=== PATIENT | male | born 1975 | race Caucasian/White ===

== ENCOUNTER → 2016-08-02 | Outpatient (CLI) | payer MEDICARE, OTHER | END | disposition home or self-care (01) | LOC: LABWHC1 08:27 | PROVIDERS: ATTEND Psychiatry & Neurology Psychiatry | DX: F31.30 Bipolar disorder, current episode depressed, mild or moderate severity, unspecified (principal) | CPT/HCPCS: 36415; 80164 ==

== ENCOUNTER 2016-09-04 16:56 | Emergency (ER) | payer MEDICARE, OTHER ==
[2016-09-04 17:05] VITALS: BP 143/71; PULSE 97; RESP 18; TEMP 97.7
--- NOTE | 2016-09-04 17:11 | ED ---
General Adult HPI - General Chief complaint: Dental/Oral Stated complaint: Tooth Pain Time Seen by Provider: 09/04/16 17:06 Source: patient, RN notes reviewed Mode of arrival: ambulatory Limitations: no limitations - History of Present Illness Initial comments: 41 yo female presents to the emergency department with a chief complaint of right-sided dental pain. Patient states that she developed this pain over the last 3 days. Patient has tenderness to both the upper and lower jaw on the right. Patient admits to a history of dental problems and states he was told he didn't remove. Patient denies any radiation of pain into the neck. Patient denies any difficulty opening closing mouth. Patient was concerned due to his symptoms he thought that he should be seen.Patient denies any recent fever, chills, shortness of breath, chest pain, back pain, abdominal pain, nausea vomiting, numbness or tingling, dysuria or hematuria, constipation or diarrhea, headaches or visual changes, or any other current symptoms. - Related Data Home Medications Medication Instructions Recorded Confirmed ARIPiprazole [Abilify] 10 mg PO HS 02/25/14 11/25/15 Beclomethasone Dipropionate [Qvar 2 puff INHALATION RT-BID 02/25/14 11/25/15 40 mcg/puff] Divalproex [Depakote] 250 mg PO AC-BID 02/25/14 11/25/15 Sertraline [Zoloft] 100 mg PO DAILY 02/25/14 11/25/15 clonazePAM [KlonoPIN] 1 mg PO TID 02/25/14 11/25/15 Baclofen [Lioresal] 10 mg PO TID 02/24/15 11/25/15 Gabapentin [Neurontin] 100 mg PO TID 02/24/15 11/25/15 Divalproex Sodium [Depakote] 500 mg PO HS 02/25/15 11/25/15 Previous Rx's Medication Instructions Recorded Atorvastatin Calcium [Lipitor] 20 mg PO HS #30 tab 02/25/15 Omeprazole [PriLOSEC] 40 mg PO AC-BRKFST #0 02/25/15 Penicillin V Potassium [Pen Vee K] 500 mg PO QID #28 tab 11/25/15 traMADol HCL [Ultram] 50 mg PO Q4HR PRN #20 tab 11/25/15 Allergies Allergy/AdvReac Type Severity Reaction Status Date / Time acetaminophen Allergy Rash/Hives Verified 09/04/16 17:05 [From Tylenol-Codeine #3] codeine phosphate Allergy Rash/Hives Verified 09/04/16 17:05 [From Tylenol-Codeine #3] ibuprofen [From Motrin] AdvReac Itching Verified 09/04/16 17:05 Review of Systems ROS Statement: Those systems with pertinent positive or pertinent negative responses have been documented in the HPI. ROS Other: All systems not noted in ROS Statement are negative. Past Medical History Past Medical History: Asthma Additional Past Medical History / Comment(s): back pain History of Any Multi-Drug Resistant Organisms: None Reported Past Surgical History: Back Surgery Additional Past Surgical History / Comment(s): joseph arthroscopic knee surgery Past Anesthesia/Blood Transfusion Reactions: No Reported Reaction Past Psychological History: Bipolar, Depression Smoking Status: Current every day smoker Past Alcohol Use History: Rare Past Drug Use History: None Reported - Past Family History Father Family Medical History: Myocardial Infarction ([place]) Additional Family Medical History / Comment(s): at 42 Mother History Unknown: Yes Family Medical History: Myocardial Infarction ([place]) General Exam Limitations: no limitations General appearance: alert, in no apparent distress Head exam: Present: atraumatic, normocephalic, normal inspection ENT exam: Present: normal exam, mucous membranes moist, other (Dental caries throughout, no sign of abscess visible) Neck exam: Present: normal inspection. Absent: tenderness, meningismus, lymphadenopathy Respiratory exam: Present: normal lung sounds bilaterally. Absent: respiratory distress, wheezes, rales, rhonchi, stridor Cardiovascular Exam: Present: regular rate, normal rhythm, normal heart sounds. Absent: systolic murmur, diastolic murmur, rubs, gallop, clicks Neurological exam: Present: alert, oriented X3 Psychiatric exam: Present: normal affect, normal mood Skin exam: Present: warm, dry, intact, normal color. Absent: rash Course Vital Signs 09/04/16 17:01 Temperature 97.7 F Pulse Rate 97 Respiratory 18 Rate Blood Pressure 143/71 O2 Sat by Pulse 96 Oximetry Medical Decision Making - Medical Decision Making 40-year-old male presents for right-sided dental pain. Symptoms started patient on pain medication and antibiotics. We did discuss close follow-up with the dentist and return parameters. Patient states understanding of the plan. He will be discharged. Disposition Clinical Impression: Dental caries Disposition: HOME SELF-CARE Condition: Stable Instructions: Dental Caries (ED) Additional Instructions: Please use medication as discussed. Please follow up with family doctor if symptoms have not improved over the next two days. Please return to the emergency room if your symptoms increase or worsen or for any other concerns. [facility] [place] [address] [address] [employer] [place] [address] [phone] (existing clients only) For new clients: [phone] 1st consult: $50 (includes Xrays) Usually 30% less then private dentist for visits after. [facility] [employer] [facility] [employer] Have to pay $50 for Xrays anmd rest is covered. [phone] Referrals: Irina Mclean MD [Primary Care Provider] - 1-2 days Time of Disposition: 17:10
== END 2016-09-04 17:17 | disposition home or self-care (01) ==
LOC: EC 16:56
DX: K02.9 Dental caries, unspecified (principal); J45.909 Unspecified asthma, uncomplicated; F31.9 Bipolar disorder, unspecified; F17.200 Nicotine dependence, unspecified, uncomplicated; Z79.51 Long term (current) use of inhaled steroids; Z79.899 Other long term (current) drug therapy; Z88.5 Allergy status to narcotic agent; Z88.6 Allergy status to analgesic agent
CPT/HCPCS: 99282

== ENCOUNTER 2017-05-15 14:46 | Emergency (ER) | payer MEDICARE, OTHER ==
[2017-05-15 14:54] VITALS: BP 134/90; PULSE 113; RESP 20; TEMP 98.1
--- NOTE | 2017-05-15 15:02 | ED ---
General Adult HPI - General Chief complaint: Dental/Oral Stated complaint: DENTAL PAIN Time Seen by Provider: 05/15/17 14:52 Source: patient, RN notes reviewed Mode of arrival: ambulatory Limitations: no limitations - History of Present Illness Initial comments: Patient 42-year-old male presents to the emergency room today with a chief complaint of increased dental pain over the last 3 days. Patient states pain starts around tooth #9. He states he has had similar symptoms in the past. He states he does have a dentist that he can follow-up with. Patient denies any drainage or discharge. Denies any other complaints or symptoms. Patient denies any recent fever, chills, shortness of breath, chest pain, abdominal pain, headaches or visual changes, or any other complaints. - Related Data Home Medications Medication Instructions Recorded Confirmed ARIPiprazole [Abilify] 10 mg PO HS 02/25/14 11/25/15 Beclomethasone Dipropionate [Qvar 2 puff INHALATION RT-BID 02/25/14 11/25/15 40 mcg/puff] Divalproex [Depakote] 250 mg PO AC-BID 02/25/14 11/25/15 Sertraline [Zoloft] 100 mg PO DAILY 02/25/14 11/25/15 clonazePAM [KlonoPIN] 1 mg PO TID 02/25/14 11/25/15 Baclofen [Lioresal] 10 mg PO TID 02/24/15 11/25/15 Gabapentin [Neurontin] 100 mg PO TID 02/24/15 11/25/15 Divalproex Sodium [Depakote] 500 mg PO HS 02/25/15 11/25/15 Previous Rx's Medication Instructions Recorded Atorvastatin Calcium [Lipitor] 20 mg PO HS #30 tab 02/25/15 Omeprazole [PriLOSEC] 40 mg PO AC-BRKFST #0 02/25/15 Penicillin V Potassium [Pen Vee K] 500 mg PO QID #28 tab 11/25/15 traMADol HCL [Ultram] 50 mg PO Q4HR PRN #20 tab 11/25/15 Penicillin V Potassium [Pen Vee K] 500 mg PO TID #40 tab 09/04/16 traMADol HCl [Ultram] 50 mg PO Q4H PRN #20 tab 09/04/16 Penicillin V Potassium [Pen Vee K] 500 mg PO QID #40 tablet 05/15/17 Allergies Allergy/AdvReac Type Severity Reaction Status Date / Time acetaminophen Allergy Rash/Hives Verified 05/15/17 14:51 [From Tylenol-Codeine #3] codeine phosphate Allergy Rash/Hives Verified 05/15/17 14:51 [From Tylenol-Codeine #3] ibuprofen [From Motrin] AdvReac Itching Verified 05/15/17 14:51 Review of Systems ROS Statement: Those systems with pertinent positive or pertinent negative responses have been documented in the HPI. ROS Other: All systems not noted in ROS Statement are negative. Past Medical History Past Medical History: Asthma Additional Past Medical History / Comment(s): back pain History of Any Multi-Drug Resistant Organisms: None Reported Past Surgical History: Back Surgery Additional Past Surgical History / Comment(s): joseph arthroscopic knee surgery Past Anesthesia/Blood Transfusion Reactions: No Reported Reaction Past Psychological History: Bipolar, Depression Smoking Status: Current every day smoker Past Alcohol Use History: Rare Past Drug Use History: None Reported - Past Family History Father Family Medical History: Myocardial Infarction ([place]) Additional Family Medical History / Comment(s): at 42 Mother History Unknown: Yes Family Medical History: Myocardial Infarction ([place]) General Exam - General Exam Comments Initial Comments: General: The patient is awake and alert, in no distress, and does not appear acutely ill. Eye: Pupils are equal, round and reactive to light, extra-ocular movements are intact. No nystagmus. There is normal conjunctiva bilaterally. No signs of icterus. Ears, nose, mouth and throat: There are moist mucous membranes and no oral lesions. Patient does have poor dental hygiene. He has some mild tenderness throughout the gums. He does have increased tenderness over tooth #9. Tooth # 8 is missing. There is some redness in the gumline of this area but no abscess. Uvula is midline. Patient swallows without difficulty. Neck: The neck is supple, there is no tenderness or JVD. Musculoskeletal: Normal ROM, no tenderness. Strength 5/5. Sensation intact. Pulses equal bilaterally 2+. Neurological: A&O x 3. CN II-XII intact, There are no obvious motor or sensory deficits. Coordination appears grossly intact. Speech is normal. Skin: Skin is warm and dry and no rashes or lesions are noted. Psychiatric: Cooperative, appropriate mood & affect, normal judgment. Limitations: no limitations Course Vital Signs 05/15/17 14:51 Temperature 98.1 F Pulse Rate 113 H Respiratory 20 Rate Blood Pressure 134/90 O2 Sat by Pulse 97 Oximetry Medical Decision Making - Medical Decision Making Patient will be started on antibiotics of penicillin is advised follow-up with his dentist. Disposition Clinical Impression: Pain, dental Disposition: HOME SELF-CARE Condition: Good Instructions: Dental Abscess (ED) Additional Instructions: Please use medication as discussed. Please follow-up with dentist this coming week. Please return to emergency room if the symptoms increase or worsen or for any other concerns. Prescriptions: Penicillin V Potassium [Pen Vee K] 500 mg PO QID #40 tablet Referrals: Irina Mcelan MD [Primary Care Provider] - 1-2 days Time of Disposition: 15:01
== END 2017-05-15 15:10 | disposition home or self-care (01) ==
LOC: EC 14:46
DX: K08.89 Other specified disorders of teeth and supporting structures (principal); K08.409 Partial loss of teeth, unspecified cause, unspecified class; F17.200 Nicotine dependence, unspecified, uncomplicated; J45.909 Unspecified asthma, uncomplicated; F31.9 Bipolar disorder, unspecified; Z79.51 Long term (current) use of inhaled steroids; Z79.899 Other long term (current) drug therapy; Z88.5 Allergy status to narcotic agent; Z88.6 Allergy status to analgesic agent; Z88.8 Allergy status to other drugs, medicaments and biological substances; Z87.39 Personal history of other diseases of the musculoskeletal system and connective tissue
CPT/HCPCS: 99282

== ENCOUNTER 2017-05-29 14:52 | Emergency (ER) | payer MEDICARE, OTHER ==
[2017-05-29] MEDS ORDERED: PANTOPRAZOLE 40 MG/10 ML VIAL IVP STA (15:44)
[2017-05-29] MEDS ORDERED: ONDANSETRON 4 MG/2 ML VIAL IVP STA (15:44)
[2017-05-29] MEDS ORDERED: SODIUM CHLORIDE 0.9% 1,000 ML IV STA ×2 (15:44)
[2017-05-29] MEDS ORDERED: MAG HYDROX/AL HYDROX/SIMETH 30 ML, HYOSCYAMINE ELIXIR 10 ML, CIMETIDINE HCL 300 MG, LID... PO STA ×4 (15:45)
--- NOTE | 2017-05-29 15:48 | ED ---
Abdominal Pain HPI - General Chief Complaint: Abdominal Pain Stated Complaint: Abd Pain Time Seen by Provider: 05/29/17 15:38 Source: patient Mode of arrival: ambulatory Limitations: no limitations - History of Present Illness Initial Comments: This 42-year-old white male presents with a complaint of some midepigastric abdominal pain which is been present for approximately 10 days. He states that it is worse with food intake. It is much worse with spaghetti and other fatty foods and he has been avoiding this for the last 10 days. He does not drink alcohol. He relates that he's had some dental issues recently and started taking Motrin approximate 10 days ago. He does have a history of gastritis as well as an abdominal ventral hernia but denies any history of gallbladder or pancreatic problems in the past. He has tried some Pepto-Bismol without relief. He denies any fevers or chills. He has had some nausea but no vomiting or diarrhea. He denies any other complaints or modifying factors. - Related Data Home Medications Medication Instructions Recorded Confirmed ARIPiprazole [Abilify] 10 mg PO HS 02/25/14 11/25/15 Beclomethasone Dipropionate [Qvar 2 puff INHALATION RT-BID 02/25/14 11/25/15 40 mcg/puff] Divalproex [Depakote] 250 mg PO AC-BID 02/25/14 11/25/15 Sertraline [Zoloft] 100 mg PO DAILY 02/25/14 11/25/15 clonazePAM [KlonoPIN] 1 mg PO TID 02/25/14 11/25/15 Baclofen [Lioresal] 10 mg PO TID 02/24/15 11/25/15 Gabapentin [Neurontin] 100 mg PO TID 02/24/15 11/25/15 Divalproex Sodium [Depakote] 500 mg PO HS 02/25/15 11/25/15 Previous Rx's Medication Instructions Recorded Atorvastatin Calcium [Lipitor] 20 mg PO HS #30 tab 02/25/15 Omeprazole [PriLOSEC] 40 mg PO AC-BRKFST #0 02/25/15 Penicillin V Potassium [Pen Vee K] 500 mg PO QID #28 tab 11/25/15 traMADol HCL [Ultram] 50 mg PO Q4HR PRN #20 tab 11/25/15 Penicillin V Potassium [Pen Vee K] 500 mg PO TID #40 tab 09/04/16 traMADol HCl [Ultram] 50 mg PO Q4H PRN #20 tab 09/04/16 Penicillin V Potassium [Pen Vee K] 500 mg PO QID #40 tablet 05/15/17 Famotidine [Pepcid] 20 mg PO BID #60 tablet 05/29/17 Ondansetron [Zofran ODT] 8 mg PO Q8HR PRN #12 tab 05/29/17 traMADol HCl [Ultram] 50 - 100 mg PO Q6H PRN #15 tab 05/29/17 Allergies Allergy/AdvReac Type Severity Reaction Status Date / Time acetaminophen Allergy Rash/Hives Verified 05/29/17 15:15 [From Tylenol-Codeine #3] codeine phosphate Allergy Rash/Hives Verified 05/29/17 15:15 [From Tylenol-Codeine #3] Review of Systems ROS Statement: Those systems with pertinent positive or pertinent negative responses have been documented in the HPI. ROS Other: All systems not noted in ROS Statement are negative. Past Medical History Past Medical History: Asthma Additional Past Medical History / Comment(s): back pain, hernia History of Any Multi-Drug Resistant Organisms: None Reported Past Surgical History: Back Surgery Additional Past Surgical History / Comment(s): joseph arthroscopic knee surgery Past Anesthesia/Blood Transfusion Reactions: No Reported Reaction Past Psychological History: Bipolar, Depression Smoking Status: Current every day smoker Past Alcohol Use History: Rare Past Drug Use History: None Reported - Past Family History Father Family Medical History: Myocardial Infarction ([place]) Additional Family Medical History / Comment(s): at 42 Mother History Unknown: Yes Family Medical History: Myocardial Infarction ([place]) General Exam - General Exam Comments Initial Comments: GENERAL: The patient is well nourished and well hydrated. VITAL SIGNS: Heart rate, blood pressure, respiratory rate reviewed as recorded in nurse's notes. EYES: Pupils are round and reactive. Extraocular movements are intact. No conjunctival / lid redness or swelling. ENT: No external evidence of injury, swelling, or ecchymosis. Airway is patent. Throat is clear. NECK: Nontender. No swelling or evidence of injury. No subcutaneous emphysema. Trachea is midline. No thyroid mass. HEART: Regular rate and rhythm. Good peripheral pulses. LUNGS/CHEST: Breath sounds clear and equal bilaterally. No rales, rhonchi, or wheezes. No ecchymosis, subcutaneous emphysema, or tenderness. ABDOMEN: Tenderness is noted to the midepigastric region. No palpable masses or organomegaly. No peritoneal signs. No abdominal wall swelling or ecchymosis. EXTREMITIES: No extremity tenderness. Normal muscle tone and function. No thoracolumbar tenderness. NEUROLOGIC: Sensation is grossly intact. Cranial nerve exam reveals face is symmetrical, tongue is midline, speech is clear. SKIN: No abrasions or ecchymosis is noted. No induration or masses noted. PSYCHIATRIC: Alert and oriented. Appropriate behavior and judgment. Limitations: no limitations Course Vital Signs 05/29/17 15:14 Temperature 98.4 F Pulse Rate 114 H Respiratory 20 Rate Blood Pressure 131/84 O2 Sat by Pulse 99 Oximetry Medical Decision Making - Medical Decision Making The patient was seen and examined. All diagnostics are reviewed. He does receive some IV Protonix and Zofran. He also receives a GI cocktail. He has a gallbladder ultrasound. This did not show any acute abnormalities. The laboratory was all essentially within normal limits. He states that he feels remarkably improved on recheck. The patient likely does have a gastritis. The timeframe of him starting taking Motrin and his symptom onset is the same. He is instructed to avoid Motrin and Motrin like products in the future. He is agreeable. He would likely benefit from follow-up with a radiology asst for possible EGD. He is agreeable with this plan and leaves in no distress. - Lab Data Result diagrams: 05/29/17 15:47 05/29/17 15:47 Lab Results 05/29/17 05/29/17 05/29/17 Range/Units 15:47 15:47 15:47 WBC 10.8 H (3.8-10.6) k/uL RBC 4.59 (4.30-5.90) m/uL Hgb 14.5 (13.0-17.5) gm/dL Hct 43.6 (39.0-53.0) % MCV 94.9 (80.0-100.0) fL MCH 31.6 (25.0-35.0) pg MCHC 33.3 (31.0-37.0) g/dL RDW 13.7 (11.5-15.5) % Plt Count 308 (150-450) k/uL Neutrophils % 74 % Lymphocytes % 20 % Monocytes % 5 % Eosinophils % 0 % Basophils % 0 % Neutrophils # 8.0 H (1.3-7.7) k/uL Lymphocytes # 2.1 (1.0-4.8) k/uL Monocytes # 0.5 (0-1.0) k/uL Eosinophils # 0.0 (0-0.7) k/uL Basophils # 0.0 (0-0.2) k/uL Sodium 145 (137-145) mmol/L Potassium 4.2 (3.5-5.1) mmol/L Chloride 106 (98-107) mmol/L Carbon Dioxide 25 (22-30) mmol/L Anion Gap 14 mmol/L BUN 27 H (9-20) mg/dL Creatinine 0.77 (0.66-1.25) mg/dL Est GFR (CKD-EPI)AfAm >90 (>60 ml/min/1.73 sqM) Est GFR (CKD-EPI)NonAf >90 (>60 ml/min/1.73 sqM) Glucose 103 H (74-99) mg/dL Calcium 9.5 (8.4-10.2) mg/dL Total Bilirubin 0.2 (0.2-1.3) mg/dL AST 20 (17-59) U/L ALT 18 L (21-72) U/L Alkaline Phosphatase 49 (38-126) U/L Total Protein 6.8 (6.3-8.2) g/dL Albumin 4.2 (3.5-5.0) g/dL Amylase 98 (30-110) U/L Lipase 210 (23-300) U/L Urine Color Yellow Urine Appearance Clear (Clear) Urine pH 6.5 (5.0-8.0) Ur Specific Seltzer 1.024 (1.001-1.035) Urine Protein Negative (Negative) Urine Glucose (UA) Negative (Negative) Urine Ketones Trace H (Negative) Urine Blood Negative (Negative) Urine Nitrite Negative (Negative) Urine Bilirubin Negative (Negative) Urine Urobilinogen 2.0 (<2.0) mg/dL Ur Leukocyte Esterase Trace H (Negative) Urine RBC 1 (0-5) /hpf Ur Squamous Epith Cells <1 (0-4) /hpf Urine Mucus Rare H (None) /hpf Disposition Clinical Impression: Abdominal pain, Gastritis Disposition: HOME SELF-CARE Condition: Good Instructions: Abdominal Pain (ED), Gastritis (ED) Additional Instructions: Please avoid Motrin, aspirin, Aleve, and similar products. Prescriptions: Famotidine [Pepcid] 20 mg PO BID #60 tablet Ondansetron [Zofran ODT] 8 mg PO Q8HR PRN #12 tab PRN Reason: Nausea traMADol HCl [Ultram] 50 - 100 mg PO Q6H PRN #15 tab PRN Reason: Pain Is patient prescribed a controlled substance at discharge?: Yes If prescribed controlled substance>3 days was MAPS reviewed?: Yes When asked, does pt state using other controlled substances?: No Referrals: Irina Mclean MD [Primary Care Provider] - 1-2 days Vonda Holt MD [STAFF PHYSICIAN] - As Soon As Possible Time of Disposition: 16:48
[2017-05-29 16:12] LABS: Basophils % (A) 0 %; Eosinophils % (A) 0 %; HCT 43.6 % (39.0-53.0); HGB 14.5 gm/dL (13.0-17.5); Lymphocytes # (A) 2.1 k/uL (1.0-4.8); Lymphocytes % (A) 20 %; MCH 31.6 pg (25.0-35.0); MCHC 33.3 g/dL (31.0-37.0); MCV 94.9 fL (80.0-100.0); Mean Platelet Volume 7.1; Monocytes # (A) 0.5 k/uL (0-1.0); Monocytes % (A) 5 %; Neutrophils % (A) 74 %; Platelet Count 308 k/uL (150-450); RBC 4.59 m/uL (4.30-5.90); RDW 13.7 % (11.5-15.5); WBC 10.8 k/uL (3.8-10.6)
[2017-05-29 16:19] LABS: Appearance,Urine Clear (Clear); Bilirubin,Urine Negative (Negative); Blood,Urine Negative (Negative); Color,Urine Yellow; Glucose,Urine (UA) Negative (Negative); Ketones,Urine Trace (Negative); Leukocyte Esterase,Urine Trace (Negative); Mucus,Urine Rare /hpf; Nitrite,Urine Negative (Negative); PH, Urine 6.5 (5.0-8.0); Protein,Urine Negative (Negative); RBC,Urine 1 /hpf (0-5); Specific Gravity,Urine 1.024 (1.001-1.035); Squamous Epithelial Cell,Urine <1 /hpf (0-4)
[2017-05-29 16:23] LABS: ALT 18 U/L (21-72); AST 20 U/L (17-59); Albumin 4.2 g/dL (3.5-5.0); Alkaline Phosphatase 49 U/L (38-126); Amylase 98 U/L (30-110); Anion Gap 14 mmol/L; Blood Urea Nitrogen 27 mg/dL (9-20); Calcium 9.5 mg/dL (8.4-10.2); Carbon Dioxide 25 mmol/L (22-30); Chloride 106 mmol/L (98-107); Glucose 103 mg/dL (74-99); Lipase 210 U/L (23-300); Potassium 4.2 mmol/L (3.5-5.1); Sodium 145 mmol/L (137-145); Total Bilirubin 0.2 mg/dL (0.2-1.3); Total Protein 6.8 g/dL (6.3-8.2)
--- NOTE | 2017-05-29 16:30 | US ---
EXAMINATION TYPE: US gallbladder DATE OF EXAM: 05/29/2017 COMPARISON: None CLINICAL HISTORY: 42-year-old male Pain. Epigastric pain, Not NPO- ate at 12. Technique: Multiple sonographic images of the right upper quadrant are obtained. FINDINGS: Liver Length: 16.5 cm Gallbladder Wall: 2.3 mm CBD: 0.3 cm CHD: 0.3 cm Right Kidney: 9.6 x 4.6 x 4.1 cm Pancreas: Grossly unremarkable. Liver: Upper limits of normal in size without focal lesion. Gallbladder: wnl Evidence for sonographic Syed's sign: neg CBD: wnl CHD: wnl Right Kidney: No hydronephrosis. IMPRESSION: Unremarkable sonographic examination of the right upper quadrant.
[2017-05-29 17:00] VITALS: BP 124/71; PULSE 67; RESP 18; TEMP 97.4
== END 2017-05-29 17:00 | disposition home or self-care (01) ==
LOC: EC 14:52
DX: K29.70 Gastritis, unspecified, without bleeding (principal); J45.909 Unspecified asthma, uncomplicated; F32.9 Major depressive disorder, single episode, unspecified; F17.200 Nicotine dependence, unspecified, uncomplicated; Z79.51 Long term (current) use of inhaled steroids; Z79.899 Other long term (current) drug therapy; Z88.6 Allergy status to analgesic agent; Z88.5 Allergy status to narcotic agent
CPT/HCPCS: 36415; 80053; 82150; 83690; 85025; 81001; 76705; 99284; 96374; 96375; 96361; J2405; C9113

== ENCOUNTER 2018-05-02 04:07 | Emergency (ER) | payer MEDICARE, OTHER ==
[2018-05-02 04:13] VITALS: BP 156/97; PULSE 102; RESP 20; TEMP 99.8
[2018-05-02] MEDS ORDERED: ONDANSETRON 4 MG ODT STARTER PACK 2 TAB BTL PO STA (04:25)
[2018-05-02] MEDS ORDERED: KETOROLAC 30 MG/ML 1 ML VIAL IM STA (04:25)
[2018-05-02 05:29] LABS: Appearance,Urine Clear (Clear); Bilirubin,Urine Negative (Negative); Blood,Urine Small (Negative); Budding Yeast,Urine Rare /hpf; Color,Urine Yellow; Glucose,Urine (UA) Negative (Negative); Ketones,Urine 1+ (Negative); Leukocyte Esterase,Urine Negative (Negative); Mucus,Urine Rare /hpf; Nitrite,Urine Negative (Negative); Protein,Urine Trace (Negative); RBC,Urine 12 /hpf (0-5); Specific Gravity,Urine 1.021 (1.001-1.035); Squamous Epithelial Cell,Urine <1 /hpf (0-4); Urobilinogen,Urine <2.0 mg/dL (<2.0); WBC,Urine 3 /hpf (0-5)
--- NOTE | 2018-05-02 05:57 | ED ---
Abdominal Pain HPI - General Chief Complaint: Abdominal Pain Stated Complaint: abd pain Time Seen by Provider: 05/02/18 04:25 Source: patient Mode of arrival: ambulatory Limitations: no limitations - History of Present Illness Initial Comments: Patient is a 43-year-old male with a past medical history of recurrent kidney stones who presents the emergency department today for evaluation of left-sided flank pain radiating into his left groin. Pain began suddenly awoke him from sleep. Pain is a 10.5 out of 10 in intensity. Pain is similar to previous kidney stones. Pain is associated with nausea. He has not noticed any gross hematuria. The patient denies any fevers, chills or vomiting. - Related Data Home Medications Medication Instructions Recorded Confirmed ARIPiprazole [Abilify] 10 mg PO HS 02/25/14 11/25/15 Beclomethasone Dipropionate [Qvar 2 puff INHALATION RT-BID 02/25/14 11/25/15 40 mcg/puff] Divalproex [Depakote] 250 mg PO AC-BID 02/25/14 11/25/15 Sertraline [Zoloft] 100 mg PO DAILY 02/25/14 11/25/15 clonazePAM [KlonoPIN] 1 mg PO TID 02/25/14 11/25/15 Baclofen [Lioresal] 10 mg PO TID 02/24/15 11/25/15 Gabapentin [Neurontin] 100 mg PO TID 02/24/15 11/25/15 Divalproex Sodium [Depakote] 500 mg PO HS 02/25/15 11/25/15 Previous Rx's Medication Instructions Recorded Atorvastatin Calcium [Lipitor] 20 mg PO HS #30 tab 02/25/15 Omeprazole [PriLOSEC] 40 mg PO AC-BRKFST #0 02/25/15 Penicillin V Potassium [Pen Vee K] 500 mg PO QID #28 tab 11/25/15 traMADol HCL [Ultram] 50 mg PO Q4HR PRN #20 tab 11/25/15 Penicillin V Potassium [Pen Vee K] 500 mg PO TID #40 tab 09/04/16 traMADol HCl [Ultram] 50 mg PO Q4H PRN #20 tab 09/04/16 Penicillin V Potassium [Pen Vee K] 500 mg PO QID #40 tablet 05/15/17 Famotidine [Pepcid] 20 mg PO BID #60 tablet 05/29/17 Ondansetron [Zofran ODT] 8 mg PO Q8HR PRN #12 tab 05/29/17 traMADol HCl [Ultram] 50 - 100 mg PO Q6H PRN #15 tab 05/29/17 Allergies Allergy/AdvReac Type Severity Reaction Status Date / Time acetaminophen Allergy Rash/Hives Verified 05/02/18 04:13 [From Tylenol-Codeine #3] codeine phosphate Allergy Rash/Hives Verified 05/02/18 04:13 [From Tylenol-Codeine #3] ibuprofen [From Motrin] AdvReac Itching Verified 05/02/18 04:13 Review of Systems ROS Statement: Those systems with pertinent positive or pertinent negative responses have been documented in the HPI. ROS Other: All systems not noted in ROS Statement are negative. Past Medical History Past Medical History: Asthma Additional Past Medical History / Comment(s): back pain, hernia History of Any Multi-Drug Resistant Organisms: None Reported Past Surgical History: Back Surgery Additional Past Surgical History / Comment(s): joseph arthroscopic knee surgery Past Anesthesia/Blood Transfusion Reactions: No Reported Reaction Past Psychological History: Bipolar, Depression Smoking Status: Current every day smoker Past Alcohol Use History: Rare Past Drug Use History: None Reported, Marijuana - Past Family History Father Family Medical History: Myocardial Infarction (DC) Additional Family Medical History / Comment(s): at 42 Mother History Unknown: Yes Family Medical History: Myocardial Infarction (DC) General Exam - General Exam Comments Initial Comments: Physical Exam GENERAL: Patient is well-developed and well-nourished. Patient is nontoxic and well-hydrated appears uncomfortable HENT: Normocephalic, Atraumatic. EYES: PERRL, EOMI PULMONARY: Unlabored respirations. No audible rales rhonchi or wheezing was noted. CARDIOVASCULAR: There is a regular rate and rhythm without any murmurs gallops or rubs. ABDOMEN: Soft and nontender with normal bowel sounds. Flank pain to palpation of the left flank SKIN: Skin is clear with no lesions or rashes and otherwise unremarkable. Multiple tattoos : Normal external genitalia circumcised No hernia palpated on exam Testicles have normal lie, no swelling, no tenderness to palpation NEUROLOGIC: Patient is alert and oriented x3. Moving all extremities spontaneously MUSCULOSKELETAL: Normal extremities with adequate strength and full range of motion. No lower extremity swelling or edema. No calf tenderness. PSYCHIATRIC: Normal psychiatric evaluation. Limitations: no limitations Limitations: no limitations Course Vital Signs 05/02/18 04:10 Temperature 99.8 F H Pulse Rate 102 H Respiratory 20 Rate Blood Pressure 156/97 O2 Sat by Pulse 97 Oximetry Medical Decision Making - Medical Decision Making Patient was seen and evaluated history was obtained from the patient and review of medical records this is a 43-year-old male with history of kidney stones presenting with left-sided flank pain radiating to his groin similar to previous kidney stones Analysis was obtained to evaluate for any hematuria or signs of infection Patient was treated with Zofran and Toradol Analysis does reveal microscopic hematuria which is consistent with likely kidney stone Patient reports his pain is improving after Toradol, his nausea has resolved At this time it is comfortable with plan for discharge home patient can resume his pain management with his by mouth Ultram. I did offer the patient Tylenol 3 however he has a codeine ALLERGY is codeine causes him nausea vomiting and at this time patient's comfortable with the plan for discharge and outpatient follow-up. Return parameters were discussed and the patient was discharged home in stable condition. - Lab Data Lab Results 05/02/18 Range/Units 04:35 Urine Color Yellow Urine Appearance Clear (Clear) Urine pH 6.0 (5.0-8.0) Ur Specific Sandy Level 1.021 (1.001-1.035) Urine Protein Trace H (Negative) Urine Glucose (UA) Negative (Negative) Urine Ketones 1+ H (Negative) Urine Blood Small H (Negative) Urine Nitrite Negative (Negative) Urine Bilirubin Negative (Negative) Urine Urobilinogen <2.0 (<2.0) mg/dL Ur Leukocyte Esterase Negative (Negative) Urine RBC 12 H (0-5) /hpf Urine WBC 3 (0-5) /hpf Ur Squamous Epith Cells <1 (0-4) /hpf Urine Mucus Rare H (None) /hpf Urine Yeast (Budding) Rare H (None) /hpf Disposition Clinical Impression: Kidney stone Disposition: HOME SELF-CARE Condition: Stable Is patient prescribed a controlled substance at d/c from ED?: No Referrals: Irina Mclean MD [Primary Care Provider] - 1-2 days Ethan Patel MD [STAFF PHYSICIAN] - 1-2 days
== END 2018-05-02 06:36 | disposition home or self-care (01) ==
LOC: EC 04:07
DX: N20.0 Calculus of kidney (principal); J45.909 Unspecified asthma, uncomplicated; F32.9 Major depressive disorder, single episode, unspecified; F17.200 Nicotine dependence, unspecified, uncomplicated; Z87.442 Personal history of urinary calculi; Z79.51 Long term (current) use of inhaled steroids; Z79.899 Other long term (current) drug therapy; Z88.6 Allergy status to analgesic agent; Z88.5 Allergy status to narcotic agent
CPT/HCPCS: 99283 ×2; 96372 ×2; 81001; J1885; S0119

== ENCOUNTER → 2018-05-07 | Outpatient (CLI) | payer MEDICARE, OTHER ==
--- NOTE | 2018-05-07 09:29 | CT ---
EXAMINATION TYPE: CT abdomen pelvis wo con DATE OF EXAM: 05/07/2018 COMPARISON: 07/18/2015 HISTORY: Left flank pain CT DLP: 364 mGycm Automated exposure control for dose reduction was used. TECHNIQUE: Helical acquisition of images was performed from the lung bases through the pelvis. FINDINGS: LUNG BASES: No significant abnormality is appreciated. LIVER/GB: No significant abnormality is appreciated. PANCREAS: No significant abnormality is seen. SPLEEN: No significant abnormality is seen. Small accessory spleen noted. ADRENALS: No significant abnormality is seen. KIDNEYS: There is a 2 mm lower pole left renal calculus. Very mild perinephric edema noted. There is mild prominence of the collecting system which has a somewhat reduced in attenuation. ADENOPATHY: No pathologic adenopathy visualized. OSSEOUS STRUCTURES: Postsurgical change involving vertebral column. Multilevel Schmorl's nodes are s een.. BOWEL: No significant abnormality is seen. Hyperdensity within the appendix may represent an appendi colith or more likely contrast within the appendix from prior exam. No evidence to suggest appendicit is OTHER: Aorta of normal caliber. Atherosclerotic change of the vasculature. IMPRESSION: 1. There is mild perinephric edema on the left with a 2 mm left lower pole renal calculus. No overt h ydronephrosis. Infectious etiology and the differential diagnosis. Additionally, there is mixed atten uation within the renal pelvis. Recommend contrast CT urogram exam for further evaluation to assess t he renal pelvis. 2. There is a prominent line extending from the upper margin of the bladder toward the umbilicus whic h could represent a urachal tract remnant. CT urogram recommended.
== END | disposition home or self-care (01) ==
LOC: RADCTMAIN 07:56
PROVIDERS: ATTEND Internal Medicine
DX: N20.0 Calculus of kidney (principal); N32.89 Other specified disorders of bladder; Z88.5 Allergy status to narcotic agent; Z88.6 Allergy status to analgesic agent
CPT/HCPCS: 74176

== ENCOUNTER → 2018-05-15 | Outpatient (CLI) | payer MEDICARE, OTHER ==
--- NOTE | 2018-05-16 03:43 | CT ---
EXAMINATION TYPE: CT urogram wo/w con DATE OF EXAM: 05/15/2018 COMPARISON: 05/07/2018 and 07/18/2015 HISTORY: 43-year-old male left flank pain TECHNIQUE: Contiguous axial scanning of the abdomen and pelvis performed without and with IV Contrast , patient injected with 100 mL of Isovue 300. Delayed images through the kidneys and bladder were obt ained. Coronal/sagittal reconstructions performed. 3-D reconstructions generated on a dedicated [employer] workstation. CT DLP: 795.8 mGycm Automated exposure control for dose reduction was used. FINDINGS: The heart is normal size without pericardial effusion. Lung bases clear without pleural effusion. Small amount of focal fat along the anterior falciform ligament. Some peripheral patchy enhancement r ight hepatic dome on late arterial phase clip creates on the later phases of imaging suggesting vascu lar shunting or flash filling hemangioma. Gallbladder, adrenal glands, spleen, and pancreas appear within normal limits. No dilated small bowel, free fluid, or free air. No mesenteric or retroperitoneal lymphadenopathy. Some prominent fluid-filled small bowel loops throughout the abdomen and upper pelvis Portal venous system is patent. No biliary ductal dilatation. Probably transient or could represent e nteritis. Mild to moderate overall stool burden. No pericolonic inflammatory change. No focal lesion within either kidney. Punctate 2 mm left lower pole renal calculus redemonstrated. Th e previous mild perinephric edema previously seen on the left appears to have resolved. The initial noncontrast sequence shows similar slight fullness of the left renal pelvis and somewhat heterogeneous density in this region. The first postcontrast sequence suggests mild urothelial thicke marii, refer to series 5 axial image 24. However, the urogram sequences show satisfactory contrast opa cification of the bilateral collecting systems without any suspicious filling defect. All of the ureters opacify except for the distal 4 cm of the left ureter. Again, no suspicious fillin g defect is encountered. There is opacification of the posterior half of the bladder. No abnormal filling defect is seen in th is region. Bones: Extensive laminectomy change L4-S1 levels with prior interbody and lateral osseous fusion. The previous posterior fixation hardware has been removed. IMPRESSION: 1. THE PREVIOUSLY SEEN LEFT PERINEPHRIC EDEMA HAS RESOLVED. THERE IS SIMILAR FULLNESS OF THE LEFT ELENI AL COLLECTING SYSTEM AND SOME HETEROGENEOUS DENSITY ON NONCONTRAST SEQUENCE. THE INITIAL POSTCONTRAST SERIES SUGGESTS SOME UROTHELIAL THICKENING OF THE LEFT RENAL PELVIS. HOWEVER, THERE IS NO SUSPICIOUS FILLING DEFECT ENCOUNTERED. CORRELATE TO EXCLUDE UTI. URINE CYTOLOGY CAN BE ASSESSED A PRECAUTION LEIGH ANN MEASURE, THOUGH AGAIN, NO SUSPICIOUS FILLING DEFECT OR MASS IS SEEN. 2. STABLE PUNCTATE 2 MM LEFT LOWER POLE RENAL CALCULUS. 3. THE DISTAL 4 CM OF THE LEFT URETER REMAIN NONOPACIFIED AND ARE NOT ASSESSED. THE REMAINDER OF THE BILATERAL URETERS APPEARS NORMAL.
== END | disposition home or self-care (01) ==
LOC: RADCTMAIN 14:09
PROVIDERS: ATTEND Internal Medicine
DX: N20.0 Calculus of kidney (principal); N28.89 Other specified disorders of kidney and ureter; Z88.5 Allergy status to narcotic agent; Z88.6 Allergy status to analgesic agent
CPT/HCPCS: 74178; 74400; Q9967

== ENCOUNTER 2018-09-02 23:55 | Emergency (ER) | payer MEDICARE, OTHER ==
[2018-09-03] VITALS: TEMP 98.2
[2018-09-03] MEDS ORDERED: IPRATROPIUM-ALBUTEROL 3 ML NEB INHALATION STA (00:16)
--- NOTE | 2018-09-03 00:43 | ED ---
URI HPI - General Chief Complaint: Upper Respiratory Infection Stated Complaint: JOSÉ MIGUEL Time Seen by Provider: 09/03/18 00:09 Source: patient Mode of arrival: ambulatory Limitations: no limitations - History of Present Illness Initial Comments: Mark Anthony is a 43-year-old gentleman with extensive past medical history presents the emergency department today for evaluation of 4 days of nonproductive cough. Patient reports he has a history of asthma but does not have any breathing treatments at home. He states that the cough is been so bad he has not been s moking for the past 4 days and plans to quit. He has no formal diagnosis of COPD. Patient denies any fevers, chills nausea or vomiting. In addition to experiencing this nonproductive cough the patient also reports that he has developed a dental infection. She has very poor dentition a history of recurrent dental infections. - Related Data Home Medications Medication Instructions Recorded Confirmed ARIPiprazole [Abilify] 10 mg PO HS 02/25/14 11/25/15 Beclomethasone Dipropionate [Qvar 2 puff INHALATION RT-BID 02/25/14 11/25/15 40 mcg/puff] Divalproex [Depakote] 250 mg PO AC-BID 02/25/14 11/25/15 Sertraline [Zoloft] 100 mg PO DAILY 02/25/14 11/25/15 clonazePAM [KlonoPIN] 1 mg PO TID 02/25/14 11/25/15 Baclofen [Lioresal] 10 mg PO TID 02/24/15 11/25/15 Gabapentin [Neurontin] 100 mg PO TID 02/24/15 11/25/15 Divalproex Sodium [Depakote] 500 mg PO HS 02/25/15 11/25/15 Previous Rx's Medication Instructions Recorded Atorvastatin Calcium [Lipitor] 20 mg PO HS #30 tab 02/25/15 Omeprazole [PriLOSEC] 40 mg PO AC-BRKFST #0 02/25/15 Penicillin V Potassium [Pen Vee K] 500 mg PO QID #28 tab 11/25/15 traMADol HCL [Ultram] 50 mg PO Q4HR PRN #20 tab 11/25/15 Penicillin V Potassium [Pen Vee K] 500 mg PO TID #40 tab 09/04/16 traMADol HCl [Ultram] 50 mg PO Q4H PRN #20 tab 09/04/16 Penicillin V Potassium [Pen Vee K] 500 mg PO QID #40 tablet 05/15/17 Famotidine [Pepcid] 20 mg PO BID #60 tablet 05/29/17 Ondansetron [Zofran ODT] 8 mg PO Q8HR PRN #12 tab 05/29/17 traMADol HCl [Ultram] 50 - 100 mg PO Q6H PRN #15 tab 05/29/17 Albuterol Inhaler [Ventolin Hfa 1 - 2 puff INHALATION RT-Q6H PRN 09/03/18 Inhaler] #1 inhaler Clindamycin [Cleocin] 300 mg PO BID #20 capsule 09/03/18 Penicillin V Potassium [Pen Vee K] 500 mg PO QID #40 tablet 09/03/18 predniSONE [Deltasone] 40 mg PO DAILY 5 Days #10 tablet 09/03/18 Allergies Allergy/AdvReac Type Severity Reaction Status Date / Time acetaminophen Allergy Rash/Hives Verified 09/03/18 00:00 [From Tylenol-Codeine #3] codeine phosphate Allergy Rash/Hives Verified 09/03/18 00:00 [From Tylenol-Codeine #3] ibuprofen [From Motrin] AdvReac Itching Verified 09/03/18 00:00 Review of Systems ROS Statement: Those systems with pertinent positive or pertinent negative responses have been documented in the HPI. ROS Other: All systems not noted in ROS Statement are negative. Past Medical History Past Medical History: Asthma Additional Past Medical History / Comment(s): back pain, hernia History of Any Multi-Drug Resistant Organisms: None Reported Past Surgical History: Back Surgery Additional Past Surgical History / Comment(s): joseph arthroscopic knee surgery Past Anesthesia/Blood Transfusion Reactions: No Reported Reaction Past Psychological History: Bipolar, Depression Smoking Status: Current every day smoker Past Alcohol Use History: Rare Past Drug Use History: Marijuana - Past Family History Father Family Medical History: Myocardial Infarction (ID) Additional Family Medical History / Comment(s): at 42 Mother History Unknown: Yes Family Medical History: Myocardial Infarction (ID) General Exam - General Exam Comments Initial Comments: Physical Exam GENERAL: Chronically ill-appearing, appears older than stated age. HENT: Normocephalic, Atraumatic. Very poor dentition, upper teeth have been extracted, lower teeth with multiple dental caries, there is gingival erythema but no abscess noted around tooth #30 EYES: PERRL, EOMI PULMONARY: Expiratory wheezing in all lung smith CARDIOVASCULAR: There is a regular rate and rhythm without any murmurs gallops or rubs. ABDOMEN: Soft and nontender with normal bowel sounds. SKIN: Skin is clear with no lesions or rashes and otherwise unremarkable. : Deferred NEUROLOGIC: Patient is alert and oriented x3. Moving all extremities spontaneously MUSCULOSKELETAL: Normal extremities with adequate strength and full range of motion. No lower extremity swelling or edema. No calf tenderness. PSYCHIATRIC: Normal psychiatric evaluation Limitations: no limitations Course Vital Signs 09/02/18 09/03/18 09/03/18 23:57 00:36 00:42 Temperature 98.2 F Pulse Rate 78 78 80 Respiratory 20 Rate Blood Pressure 130/83 O2 Sat by Pulse 99 Oximetry Medical Decision Making - Medical Decision Making The patient was seen and evaluated, history is obtained from the patient Patient with expiratory wheezing, no productive cough Chest x-ray was ordered and reviewed, there is no focal consolidations Patient will be prescribed clindamycin for his dental infection, steroids and al buterol for his URI. All questions pertaining care were answered return parameters discussed patient discharged home in stable condition Disposition Clinical Impression: Bronchitis, Dental infection Disposition: HOME SELF-CARE Condition: Stable Instructions (If sedation given, give patient instructions): Upper Respiratory Infection (ED) Prescriptions: Clindamycin [Cleocin] 300 mg PO BID #20 capsule predniSONE [Deltasone] 40 mg PO DAILY 5 Days #10 tablet Penicillin V Potassium [Pen Vee K] 500 mg PO QID #40 tablet Albuterol Inhaler [Ventolin Hfa Inhaler] 1 - 2 puff INHALATION RT-Q6H PRN #1 inhaler PRN Reason: Wheezing Is patient prescribed a controlled substance at d/c from ED?: No Referrals: Irina Mclean MD [Primary Care Provider] - 1-2 days
--- NOTE | 2018-09-03 01:52 | XR ---
EXAM: XR Chest, 2 Views CLINICAL HISTORY: ITS.REASON XR Reason: Pain TECHNIQUE: Frontal and lateral views of the chest. COMPARISON: 02/24/15 chest radiography. FINDINGS: Lungs: Patchy pneumonia at the left lower lobe posteriorly. Pleural space: Unremarkable. No pneumothorax. Heart: Unremarkable. No cardiomegaly. Mediastinum: Unremarkable. Bones/joints: Unremarkable. IMPRESSION: Patchy pneumonia left lower lobe posteriorly. Advise follow-up in 8 weeks to document stability.
[2018-09-03 02:01] VITALS: BP 132/86; PULSE 76; RESP 18
== END 2018-09-03 02:01 | disposition home or self-care (01) ==
LOC: EC 23:55
DX: J45.909 Unspecified asthma, uncomplicated (principal); K04.7 Periapical abscess without sinus; K02.9 Dental caries, unspecified; F31.9 Bipolar disorder, unspecified; F17.200 Nicotine dependence, unspecified, uncomplicated; Z87.19 Personal history of other diseases of the digestive system; Z98.890 Other specified postprocedural states; Z79.51 Long term (current) use of inhaled steroids; Z79.899 Other long term (current) drug therapy; Z88.5 Allergy status to narcotic agent; Z88.6 Allergy status to analgesic agent
CPT/HCPCS: 71046; 94640; 99285

== ENCOUNTER → 2021-03-15 | Outpatient (CLI) | payer MEDICARE, OTHER ==
--- NOTE | 2021-03-15 11:09 | CT ---
EXAMINATION TYPE: CT abdomen pelvis wo con DATE OF EXAM: 03/15/2021 COMPARISON: 05/15/2018 HISTORY: 46-year-old male R10.9, abdominal pain CT DLP: 222.90 mGycm. Automated exposure control for dose reduction was used. TECHNIQUE: Contiguous axial scanning of the abdomen and pelvis without IV contrast. Coronal and sagit [place] reconstructions performed. FINDINGS: Heart normal size without pericardial effusion. Mild emphysematous change in the visualized lower john gs. No pleural effusion. Noncontrast appearance of the liver, gallbladder, right adrenal gland, spleen, and pancreas show no g ross abnormality. Mild low density thickening left adrenal gland could represent a small underlying adrenal adenoma marie suring 1 cm. A couple punctate 2 to 3 mm nonobstructive left renal calculi. No hydronephrosis on either side. No dilated small bowel, free fluid, or free air. No mesenteric or retroperitoneal lymphadenopathy. Mild circumferential thickening gastric fundus and proximal body, for example, axial image 14, may be due to nondistention. No dilated small bowel, free fluid, or free air. No mesenteric or retroperitoneal lymphadenopathy see n. Moderate stool burden. Unable to clearly identify the appendix. Moderate stool burden. No pericolonic inflammatory change seen. Bladder partially distended. Prostate gland 3.6 cm wide. No abnormal fluid collection in the pelvis o r pelvic lymphadenopathy. Bones: Post surgical change with L4-S1 laminectomies and posterior and interbody lumbar fusion. Mild disc bulge above the fusion at L3-L4. IMPRESSION: 1. Circumferential wall thickening of the gastric fundus and proximal body may be due to nondistentio n. Correlate to exclude gastritis. 2. A couple punctate 2 to 3 mm nonobstructive left renal calculi. 3. Moderate stool burden. 4. Mild emphysematous change in the visualized lower lungs. 5. Possible small underlying 1 cm left adrenal adenoma.
== END | disposition home or self-care (01) ==
LOC: RADCTMAIN 09:55
PROVIDERS: ATTEND Internal Medicine
DX: N20.0 Calculus of kidney (principal); K31.89 Other diseases of stomach and duodenum; J43.9 Emphysema, unspecified
CPT/HCPCS: 74176

== ENCOUNTER 2024-02-12 00:16 | Inpatient (IN) | payer MEDICARE, OTHER ==
[2024-02-12] MEDS: NALOXONE 0.4 MG/ML 1 ML VIAL IVP STA (00:20)
[2024-02-12 00:23] LABS: Glucose,Whole Blood 113 mg/dL (70-110)
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
[2024-02-12] MEDS: IPRATROPIUM-ALBUTEROL 3 ML NEB INHALATION STA (00:39)
[2024-02-12] MEDS: ALBUTEROL NEBULIZED 2.5 MG/3 ML INHALATION STA (00:39)
[2024-02-12 00:45] LABS: Basophils % (A) 0 %; Eosinophils % (A) 0 %; HCT 43.1 % (39.0-53.0); HGB 13.6 gm/dL (13.0-17.5); Hypochromasia Slight; Lymphocytes # (A) 1.8 k/uL (1.0-4.8); Lymphocytes % (A) 19 %; MCH 31.2 pg (25.0-35.0); MCHC 31.5 g/dL (31.0-37.0); Mean Platelet Volume 7.8; Monocytes # (A) 0.6 k/uL (0-1.0); Monocytes % (A) 6 %; Neutrophils # (A) 7.1 k/uL (1.3-7.7); Neutrophils % (A) 74 %; Platelet Count 382 k/uL (150-450); RBC 4.35 m/uL (4.30-5.90); RDW 13.7 % (11.5-15.5); WBC 9.6 k/uL (3.8-10.6)
[2024-02-12 00:51] LABS: VBG PCO2 >98 mmHg (37-51)
[2024-02-12 00:59] LABS: ALT 124 U/L (4-49); AST 65 U/L (17-59); African American GFR (CKD) >90 (>60 ml/min/1.73 sqM); Albumin 5.2 g/dL (3.5-5.0); Alcohol <10 mg/dL; Alkaline Phosphatase 72 U/L (38-126); Blood Urea Nitrogen 33 mg/dL (9-20); Calcium 10.1 mg/dL (8.4-10.2); Glucose 92 mg/dL (74-99); Non-African American GFR(CKD) >90 (>60 ml/min/1.73 sqM); Total Bilirubin 0.2 mg/dL (0.2-1.3); Total Protein 8.7 g/dL (6.3-8.2)
[2024-02-12 01:02] LABS: INR 0.8 (<1.2); Prothrombin Time 9.3 sec (10.0-12.5)
[2024-02-12] MEDS: methylPREDNISolone SOD SUCCI 125 MG/2 ML VIAL IV STA (01:12)
--- NOTE | 2024-02-12 01:23 | CT ---
EXAM: CT Head Without Intravenous Contrast CLINICAL HISTORY: ITS.REASON CT Reason: AMS TECHNIQUE: Axial computed tomography images of the head/brain without intravenous contrast. CTDI is 49.1 mGy and DLP is 1327 mGy-cm. This CT exam was performed using one or more of the following dose reduction techniques: automated exposure control, adjustment of the mA and/or kV according to patient size, and/or use of iterative reconstruction technique. COMPARISON: No relevant prior studies available. FINDINGS: No acute intracranial hemorrhage. No midline shift or mass effect. The territorial collins-white matter differentiation is maintained throughout. The ventricles and sulci are commensurate with age. The visualized orbits appear grossly unremarkable. The calvarium is intact. The visualized paranasal sinuses and mastoid air cells are grossly clear. IMPRESSION: No acute intracranial hemorrhage, midline shift, or mass effect.
[2024-02-12 01:38] LABS: Anion Gap 16 mmol/L; Carbon Dioxide 36 mmol/L (22-30); Chloride 94 mmol/L (98-107); Potassium 4.4 mmol/L (3.5-5.1); Sodium 146 mmol/L (137-145)
[2024-02-12] MEDS ORDERED: NALOXONE 0.4 MG/ML 1 ML VIAL IVP PRN (02:40)
[2024-02-12] MEDS ORDERED: IPRATROPIUM-ALBUTEROL 3 ML NEB INHALATION PRN (02:40)
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
[2024-02-12] MEDS: SODIUM CHLORIDE 0.9% 1,000 ML IV SCH (04:15)
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
[2024-02-12] MEDS: methylPREDNISolone SOD SUCCI 125 MG/2 ML VIAL IV SCH (06:03)
[2024-02-12] MEDS: IPRATROPIUM-ALBUTEROL 3 ML NEB INHALATION SCH (08:30)
[2024-02-12] MEDS: ENOXAPARIN 40 MG/0.4 ML SYRINGE SQ SCH (09:43)
[2024-02-12 10:04] LABS: Appearance,Urine Clear (Clear); Bilirubin,Urine Negative (Negative); Blood,Urine Negative (Negative); Color,Urine Light Yellow; Glucose,Urine (UA) Negative (Negative); Ketones,Urine Negative (Negative); Leukocyte Esterase,Urine Negative (Negative); Nitrite,Urine Negative (Negative); Protein,Urine Negative (Negative); Specific Gravity,Urine 1.022 (1.001-1.035); Urobilinogen,Urine <2.0 mg/dL (<2.0)
[2024-02-12 10:34] LABS: Amphetamine Screen,Urine Not Detected (NotDetected); Barbiturate Screen,Urine Not Detected (NotDetected); Benzodiazepines Screen,Urine Not Detected (NotDetected); Cocaine Screen,Urine Not Detected (NotDetected); Methadone Screen, Urine Not Detected (NotDetected); Opiate Screen,Urine Detected (NotDetected); Oxycodone Screen, Urine Not Detected (NotDetected); Phencyclidine Screen,Urine Not Detected (NotDetected); Tricyclic Antidepressant,Urine Not Detected (NotDetected); Urn Cannabinoid Scrn Detected (NotDetected)
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
[2024-02-12] MEDS: clonazePAM 1 MG TAB PO SCH (16:02)
[2024-02-12] MEDS ORDERED: NON FORMULARY DRUG (Albuterol Inhaler 90 MCG Puff) INHALATION PRN (18:06)
[2024-02-12] MEDS: HYDROcodone/APAP 7.5-325MG 1 EACH TAB PO PRN (18:33)
[2024-02-12] MEDS: ERGOCALCIFEROL 1,250 MCG (50,000 IU) CAPSULE PO SCH (18:47)
[2024-02-12] MEDS ORDERED: ONDANSETRON 4 MG/2 ML VIAL IVP PRN (18:54)
[2024-02-12] MEDS ORDERED: MELATONIN 5 MG TABLET PO PRN (18:54)
[2024-02-12] MEDS: DIVALPROEX ER 500 MG TAB.ER.24H PO SCH (20:13)
[2024-02-12] MEDS: FAMOTIDINE 20 MG TAB PO SCH (20:13)
[2024-02-12] MEDS: BUDESONIDE 1 MG/2 ML NEBU INHALATION SCH (20:19)
[2024-02-12] MEDS: FORMOTEROL FUMARATE 20 MCG/2 ML NEBU INHALATION SCH (20:19)
[2024-02-12] MEDS: DIVALPROEX ER 250 MG TAB.ER.24H PO SCH (20:43)
[2024-02-13 07:15] LABS: African American GFR (CKD) >90 (>60 ml/min/1.73 sqM); Anion Gap 5 mmol/L; Blood Urea Nitrogen 26 mg/dL (9-20); Calcium 8.5 mg/dL (8.4-10.2); Carbon Dioxide 34 mmol/L (22-30); Chloride 101 mmol/L (98-107); Glucose 133 mg/dL (74-99); Magnesium 1.8 mg/dL (1.6-2.3); Non-African American GFR(CKD) >90 (>60 ml/min/1.73 sqM); Potassium 4.2 mmol/L (3.5-5.1); Sodium 140 mmol/L (137-145)
[2024-02-13] MEDS ORDERED: NON FORMULARY DRUG (Fluticasone/Umeclidin/Vilanter [Trelegy Ellipta 100-62.5-25] 1 EACH Bl INHALATION SCH (08:00)
[2024-02-13] MEDS: SERTRALINE 100 MG TAB PO SCH (08:44)
[2024-02-13] MEDS: METOPROLOL SUCCINATE (ER) 25 MG TAB.ER.24H PO SCH (08:44)
[2024-02-13] MEDS: EZETIMIBE 10 MG TAB PO SCH (08:44)
[2024-02-13] MEDS: FERROUS SULFATE 325 MG TAB PO SCH (08:44)
[2024-02-13] MEDS: ARIPiprazole 15 MG TAB PO SCH (08:45)
[2024-02-13] MEDS: NICOTINE 21MG/24HR PATCH TRANSDERM SCH (11:09)
[2024-02-13] MEDS: MAGNESIUM CITRATE 296 ML BOTTLE PO ONE (11:09)
--- NOTE | 2024-02-13 12:40 | P.PN ---
Subjective Progress Note Date: 02/13/24 Hospital Course: 50-year-old male with a PMH of COPD with chronic hypoxic respiratory failure, bipolar disorder, depression, who was brought into the emergency room via EMS for altered mental status. Chest x-ray in emergency room was unremarkable with CT brain also unremarkable. EKG revealed sinus tachycardia at [address]/T wave changes noted. Laboratory evaluation was remarkable for VBG pH 7.20, VBG pCO2 greater than 98, bicarb 36, with troponin less than 0.012. Patient was admitted for COPD exacerbation and acute hypercapnic hypoxic respiratory failure. Was started on BiPAP. Pulmonology consulted. Subjective: Patient seen and examined at bedside. No acute events overnight. Used BiPAP overnight. He claims that he has not been having bowel movements for the last w rincon or so. Pertinent positives and negatives as discussed above, a complete review of systems was performed and all other systems are negative. Vitals Signs Reviewed. General: Nontoxic, no distress, appears at stated age, chronically ill-appearing Derm: Warm, dry Head: Atraumatic, normocephalic, symmetric Eyes: EOMI, no lid lag, anicteric sclera Mouth: No lip lesion, mucus membranes moist Cardiovascular: S1S2 reg, no murmur Lungs: Decreased breath sounds bilaterally, no accessory muscle use, supplemental oxygen Abdominal: Soft, nontender to palpation, no guarding, no appreciable organomeg andrew Ext: No gross muscle atrophy, no edema, no contractures Neuro: CN II-XI grossly intact, no focal neuro deficits Psych: Alert, oriented, appropriate affect Data Reviewed Today: Pertinent Labs: Sodium 140, bicarb 34, creatinine 0.61, magnesium 1.8 Imaging: No new imaging Assessment and Plan: Active: Acute hypoxic and hypercapnic respiratory failure Acute COPD exacerbation Acute metabolic encephalopathy, likely CO2 narcosis Respiratory acidosis -On Perforomist and Pulmicort twice daily, DuoNebs every 2 hours as needed, 4 times daily scheduled, Solu-Medrol IV 60 mg every 6 hours -Pulmonology following Constipation -Mag citrate x 1 -Daily MiraLAX Nicotine dependence -Nicotine patch 21 mg daily -Counseled regarding smoking cessation during this admission Transaminitis -Repeat CMP tomorrow -No right upper quadrant pain Resolved: Hypernatremia Lactic acidosis Chronic: Depression/anxiety Bipolar disorder Dyslipidemia Hypertension DVT ppx: Lovenox Code status: Full code Anticipated discharge place: Pending clinical course Anticipated discharge time: Pending clinical course Objective - Vital Signs Vital signs: Vital Signs Temp 98.2 F 02/13/24 11:08 Pulse 70 02/13/24 12:32 Resp 19 02/13/24 11:08 BP 109/66 02/13/24 11:08 Pulse Ox 96 02/13/24 11:08 FiO2 30 02/13/24 05:45 Intake & Output 02/12/24 02/13/24 02/13/24 18:59 06:59 18:59 Intake Total 480 250 Output Total 1000 280 300 Balance -1000 200 -50 Weight 44 kg Intake: IV 10 Invasive Line 2 10 Oral 480 240 Output: Urine 1000 280 300 Other: Voiding Method Urinal Urinal # Voids 1 - Labs CBC & Chem 7: 02/12/24 00:34 02/13/24 06:07 Labs: Abnormal Lab Results - Last 24 Hours (Table) 02/13/24 Range/Units 06:07 Carbon Dioxide 34 H (22-30) mmol/L BUN 26 H (9-20) mg/dL Creatinine 0.61 L (0.66-1.25) mg/dL Glucose 133 H (74-99) mg/dL
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
[2024-02-13 23:45] VITALS: RESP 16
[2024-02-14] MEDS: polyethylene glycoL 3350 17 GM POWD.PACK PO SCH (09:43)
[2024-02-14 09:44] LABS: HCT 33.8 % (39.0-53.0); HGB 10.8 gm/dL (13.0-17.5); MCH 31.4 pg (25.0-35.0); Mean Platelet Volume 7.9; Platelet Count 428 k/uL (150-450); RBC 3.45 m/uL (4.30-5.90); RDW 14.2 % (11.5-15.5); WBC 14.9 k/uL (3.8-10.6)
[2024-02-14 09:56] LABS: AST 27 U/L (17-59); African American GFR (CKD) >90 (>60 ml/min/1.73 sqM); Albumin 3.8 g/dL (3.5-5.0); Alkaline Phosphatase 51 U/L (38-126); Blood Urea Nitrogen 26 mg/dL (9-20); Calcium 8.9 mg/dL (8.4-10.2); Chloride 93 mmol/L (98-107); Glucose 119 mg/dL (74-99); Magnesium 2.3 mg/dL (1.6-2.3); Non-African American GFR(CKD) >90 (>60 ml/min/1.73 sqM); Potassium 4.6 mmol/L (3.5-5.1); Sodium 140 mmol/L (137-145); Total Bilirubin <0.1 mg/dL (0.2-1.3); Total Protein 6.1 g/dL (6.3-8.2)
[2024-02-14 10:02] LABS: Anion Gap 12 mmol/L; Carbon Dioxide 35 mmol/L (22-30)
[2024-02-14 10:03] LABS: ALT 70 U/L (4-49)
[2024-02-14 10:38] VITALS: TEMP 98.3
[2024-02-14 12:36] VITALS: BP 124/72; PULSE 71
--- NOTE | 2024-02-14 12:57 | P.DS ---
Providers Date of admission: 02/12/24 02:42 Expected date of discharge: 02/14/24 Attending physician: Maximilian Ruiz MD Consults: 02/12/24 02:40 Consult Physician Routine Consulting Provider: Keila Levy Consult Reason/Comments: COPD Do you want consulting provider notified?: Yes Primary care physician: Stated None Hospital Course: Discharge Diagnosis: Acute on chronic hypoxic and hypercapnic respiratory failure. Patient admitted under services. Received IV steroids, [id number] scheduled nebulizer treatments as well as as needed treatments. Oxygen requirements back at baseline. Patient was evaluated by split leather mosser and cleared from pulmonary perspective for discharge. Patient discharged home with DuoNebs, nicotine pat ch, and prednisone taper. Patient to follow-up outpatient with PCP in 1 to 2 days and with split leather mosser in 1-2 weeks. Acute COPD exacerbation Acute metabolic encephalopathy, likely CO2 narcosis. Resolved. Respiratory acidosis Constipation. Resolved Nicotine dependence. Recommend smoking cessation. Patient was discharged with prescription for nicotine patches 21 mg daily. Transaminitis. Improved. Hypernatremia. Resolved. Lactic acidosis. Resolved. Depression/anxiety. Resume home medication regimen with Zoloft 100 mg daily, Klonopin 1 mg 3 times daily, and Abilify 30 mg daily. Bipolar disorder. Resume home medication regimen with Zoloft 100 mg daily, Depakote 250 mg twice daily and 500 mg nightly, and Abilify 30 mg daily. Dyslipidemia. Resume home medication regimen with Zetia 10 mg daily. Hypertension. Continue home medication regimen with metoprolol 25 mg daily. Hospital Course: Patient is a very pleasant 49-year-old male with a past medical history of COPD with chronic hypoxic respiratory failure, bipolar disorder, depression, who was brought into the emergency room via EMS for altered mental status. Chest x-ray in emergency room was unremarkable with CT brain also unremarkable. EKG revealed sinus tachycardia at [address]/T wave changes noted. Laboratory evaluation was remarkable for VBG pH 7.20, VBG pCO2 greater than 98, bicarb 36, with troponin less than 0.012. Patient was admitted for COPD exacerbation and acute hypercapnic hypoxic respiratory failure. Was started on BiPAP and admitted under our services with consultation to pulmonology. Received IV steroids, [id number] scheduled nebulizer treatments as well as as needed treatments. Oxygen requirements back at baseline. Mentation improved and back at baseline. Patient was evaluated by split leather mosser and cleared from pulmonary perspective for discharge. Patient discharged home with DuoNebs, nicotine patch, and prednisone taper. Patient to follow-up outpatient with PCP in 1 to 2 days and with split leather mosser in 1-2 weeks. Physical exam: Vital signs reviewed and stable. General: Nontoxic, no distress and appears stated age. Thin build. Derm: Skin warm and dry, normal coloration for ethnicity. Head: Atraumatic, normocephalic and symmetric. Eyes: EOM's intact, no lid lag, and anicteric sclera Mouth: no lip lesions, mucus membranes moist Cardiovascular: regular rate and rhythm with normal S1S2, no murmur, positive posterior tibial pulses bilaterally, and cap refill < 2 seconds. Lungs: Respirations even, regular, and unlabored on 2 L O2 via nasal cannula. Lungs diminished with soft expiratory wheezes noted. No rhonchi, rales, or crackles noted. No accessory muscle usage.. Abdominal: soft, nontender to palpation, no guarding, no appreciable organomegaly Ext: ROM intact. No gross muscle atrophy, no edema, no contractures Neuro: Speech clear, face symmetrical and CN II-XII grossly intact with no noted focal neuro deficits Psych: Alert and oriented to person, place, time, and situation. Appropriate and pleasant affect. A total of 35 minutes of time were spent preparing this complex discharge summary. Pt was discharged on 02/14/2024 at 12:53 PM. Patient was seen independently by Nurse Practitioner. This document was prepared using [employer] dictation software. Please allow for errors in architectural model maker while rare they do occur. Brennan Greer NP rendered care for this patient independently, reviewed the findings and plan as documented in the note above. I did not physically speak with or examine the patient on this date. Patient Condition at Discharge: Stable Plan - Discharge Summary Discharge Rx Participant: Yes New Discharge Prescriptions: New predniSONE See Taper PO DIRECTED 12 Days #30 tab Nicotine 21Mg/24Hr Patch [Habitrol] 1 patch TRANSDERM DAILY 30 Days #30 patch Ipratropium-Albuterol Nebulize [Duoneb 0.5 mg-3 mg/3 ml Soln] 3 ml INHALATION RT-QID #120 each Continue Sertraline [Zoloft] 100 mg PO DAILY clonazePAM [KlonoPIN] 1 mg PO TID Albuterol Inhaler [Ventolin Hfa Inhaler] 2 puff INHALATION RT-QID PRN PRN Reason: Shortness Of Breath Divalproex ER [Depakote ER] 250 mg PO BID Divalproex ER [Depakote ER] 500 mg PO HS Ferrous Sulfate [Iron (65 MG Elemental)] 325 mg PO DAILY Fluticasone/Umeclidin/Vilanter [Trelegy Ellipta 100-62.5-25] 1 puff INHALATION RT-DAILY HYDROcodone/APAP 7.5-325MG [[place] 7.5-325] 1 tab PO TID PRN PRN Reason: Pain ARIPiprazole [Abilify] 30 mg PO DAILY Ergocalciferol (Vitamin D2) [Drisdol (50,000 Iu)] 1,250 mcg PO Q7D Ezetimibe [Zetia] 10 mg PO DAILY Metoprolol Succinate [Metoprolol Succinate ER] 25 mg PO DAILY Discharge Medication List Sertraline [Zoloft] 100 mg PO DAILY 02/25/14 [History] clonazePAM [KlonoPIN] 1 mg PO TID 02/25/14 [History] ARIPiprazole [Abilify] 30 mg PO DAILY 02/12/24 [History] Albuterol Inhaler [Ventolin Hfa Inhaler] 2 puff INHALATION RT-QID PRN 02/12/24 [History] Divalproex ER [Depakote ER] 250 mg PO BID 02/12/24 [History] Divalproex ER [Depakote ER] 500 mg PO HS 02/12/24 [History] Ergocalciferol (Vitamin D2) [Drisdol (50,000 Iu)] 1,250 mcg PO Q7D 02/12/24 [His tory] Ezetimibe [Zetia] 10 mg PO DAILY 02/12/24 [History] Ferrous Sulfate [Iron (65 MG Elemental)] 325 mg PO DAILY 02/12/24 [History] Fluticasone/Umeclidin/Vilanter [Trelegy Ellipta 100-62.5-25] 1 puff INHALATION RT-DAILY 02/12/24 [History] HYDROcodone/APAP 7.5-325MG [[place] 7.5-325] 1 tab PO TID PRN 02/12/24 [History] Metoprolol Succinate [Metoprolol Succinate ER] 25 mg PO DAILY 02/12/24 [History] Ipratropium-Albuterol Nebulize [Duoneb 0.5 mg-3 mg/3 ml Soln] 3 ml INHALATION RT-QID #120 each 02/14/24 [Rx] Nicotine 21Mg/24Hr Patch [Habitrol] 1 patch TRANSDERM DAILY 30 Days #30 patch 02/14/24 [Rx] predniSONE See Taper PO DIRECTED 12 Days #30 tab 02/14/24 [Rx] Follow up Appointment(s)/Referral(s): Alf Piedra DO [Doctor of Osteopathic Medicine] - 03/03/24 10:15 am [facility] [NON-STAFF] - 1 Week (Office is closed. Please schedule follow up appointment at residency clinic. ) Patient Instructions/Handouts: How to Stop Smoking (DC), COPD (Chronic Obstructive Pulmonary Disease) (DC), Chronic Lung Disease and Infection Prevention (DC) Activity/Diet/Wound Care/Special Instructions: Activity: As tolerated. Take breaks as needed. Diet: Heart healthy and carb consistent diet. Special Instructions: Take all of your medications as directed and remember to keep all of your doctor's appointments and follow-up as needed. Wishing you a happy and healthy new year! Thank you for allowing us to participate in your care, it was truly a pleasure having you for our patient!!! Discharge Disposition: HOME SELF-CARE
[2024-02-14 13:16] VITALS: BMI 18.1
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
== END 2024-02-14 14:00 | disposition home or self-care (01) | DRG 189 ==
LOC: EC 00:16 → 3SCARD 02:42
PROVIDERS: ADMIT Internal Medicine; ATTEND Internal Medicine
PROC: 5A09357 Assistance with Respiratory Ventilation, Less than 24 Consecutive Hours, Continuous Positive Airway Pressure (ICD-10-PCS; principal; 2024-02-12)
DX: J96.22 Acute and chronic respiratory failure with hypercapnia (principal); G93.41 Metabolic encephalopathy; E87.0 Hyperosmolality and hypernatremia; E87.29 Other acidosis; R64 Cachexia; J43.9 Emphysema, unspecified; J96.21 Acute and chronic respiratory failure with hypoxia; E78.5 Hyperlipidemia, unspecified; I10 Essential (primary) hypertension; F31.9 Bipolar disorder, unspecified; F41.9 Anxiety disorder, unspecified; F17.200 Nicotine dependence, unspecified, uncomplicated; K59.00 Constipation, unspecified; Z71.6 Tobacco abuse counseling; Z79.899 Other long term (current) drug therapy; Z99.81 Dependence on supplemental oxygen
CPT/HCPCS: 36415; 70450; 71045; 80048; 80053; 80306; 80320; 81003; 82803; 83605; 83735; 84484; 85025; 85027; 85610; 85730; 93005; 94640; 94660; 96372; 96374; 96375; 96376; 99291